=== PATIENT | female | born 1955 | race Two or more races ===

== ENCOUNTER 2016-07-15 19:35 | Inpatient (IN) | payer BC ==
[2016-07-15] MEDS ORDERED: ONDANSETRON 4 MG/2 ML VIAL IVP STA (20:41)
[2016-07-15] MEDS ORDERED: SODIUM CHLORIDE 0.9% 1,000 ML IV STA ×2 (20:41)
[2016-07-15] MEDS ORDERED: FAMOTIDINE 20 MG/2 ML VIAL IV STA (20:42)
[2016-07-15] MEDS ORDERED: DICYCLOMINE 10 MG/ML 2 ML AMP IM STA (20:42)
--- NOTE | 2016-07-15 20:44 | ED ---
General Adult HPI - General Chief complaint: Nausea/Vomiting/Diarrhea Stated complaint: vomitting Time Seen by Provider: 07/15/16 20:30 Source: patient, family, RN notes reviewed Mode of arrival: wheelchair Limitations: no limitations - History of Present Illness Initial comments: Patient is a pleasant 1-year-old female presenting to the emergency department complaining of nausea vomiting diarrhea. Symptoms have been present almost 3 weeks. Patient vomits 1-2 times daily. Decreased oral intake. Patient is losing weight. Patient feels generally weak and fatigued. Symptoms worsen with exertion. Patient is also having diarrhea approximately once daily. - Related Data Allergies Allergy/AdvReac Type Severity Reaction Status Date / Time levofloxacin [From Levaquin] AdvReac Intermediate Unknown Verified 07/15/16 21: 05 Review of Systems ROS Statement: Those systems with pertinent positive or pertinent negative responses have been documented in the HPI. ROS Other: All systems not noted in ROS Statement are negative. Constitutional: Denies: fever Eyes: Denies: eye pain ENT: Denies: ear pain Respiratory: Denies: cough, dyspnea Cardiovascular: Denies: chest pain Endocrine: Reports: fatigue Gastrointestinal: Reports: abdominal pain, nausea, vomiting, diarrhea Genitourinary: Denies: dysuria Musculoskeletal: Denies: back pain Skin: Denies: rash Neurological: Reports: weakness (Generalized) Past Medical History Past Medical History: COPD, Diabetes Mellitus, Hyperlipidemia, Hypertension Additional Past Medical History / Comment(s): MYASTHENIA GRAVIS History of Any Multi-Drug Resistant Organisms: None Reported Additional Past Surgical History / Comment(s): THYMUS Past Psychological History: Depression Smoking Status: Never smoker Past Alcohol Use History: None Reported Past Drug Use History: None Reported General Exam Limitations: no limitations General appearance: alert, in no apparent distress Head exam: Present: atraumatic, normocephalic Eye exam: Present: normal appearance, PERRL ENT exam: Present: normal oropharynx Neck exam: Present: normal inspection Respiratory exam: Present: normal lung sounds bilaterally Cardiovascular Exam: Present: regular rate, normal rhythm GI/Abdominal exam: Present: soft, normal bowel sounds. Absent: distended, tenderness Extremities exam: Present: normal inspection Neurological exam: Present: alert Psychiatric exam: Present: normal affect, normal mood Skin exam: Absent: rash Course Vital Signs 07/15/16 07/15/16 07/15/16 20:09 20:25 21:10 Temperature 98.3 F Pulse Rate 98 80 85 Respiratory 20 14 14 Rate Blood Pressure 82/52 99/56 98/53 O2 Sat by Pulse 100 99 96 Oximetry EKG Findings - EKG Comments: EKG Findings:: Normal sinus rhythm at 89. VT 138. QRS 82. QT 396. QTc 481. Normal axis. Normal QRS. Normal ST-T. Medical Decision Making - Medical Decision Making Patient reevaluated and updated. Patient provided IV potassium and oral potassium replacement. Patient provided fluid bolus. Patient has acute renal failure and hypokalemia. Patient will need to be admitted. Dr. Garcia has been paged for Dr. Stokes. Patient and family are updated on results and plan. - Lab Data Result diagrams: 07/15/16 20:30 07/15/16 20:51 Lab Results 07/15/16 07/15/16 Range/Units 20:30 20:51 WBC 10.0 (3.8-10.6) k/uL RBC 5.62 H (3.80-5.40) m/uL Hgb 12.9 (11.4-16.0) gm/dL Hct 41.8 (34.0-46.0) % MCV 74.4 L (80.0-100.0) fL MCH 23.0 L (25.0-35.0) pg MCHC 30.9 L (31.0-37.0) g/dL RDW 15.3 (11.5-15.5) % Plt Count 173 (150-450) k/uL Neutrophils % 88 % Lymphocytes % 5 % Monocytes % 4 % Eosinophils % 1 % Basophils % 2 % Neutrophils # 8.8 H (1.3-7.7) k/uL Lymphocytes # 0.5 L (1.0-4.8) k/uL Monocytes # 0.4 (0-1.0) k/uL Eosinophils # 0.1 (0-0.7) k/uL Basophils # 0.2 (0-0.2) k/uL Hypochromasia Slight Microcytosis Slight Sodium 136 L (137-145) mmol/L Potassium 2.5 L* (3.5-5.1) mmol/L Chloride 94 L (98-107) mmol/L Carbon Dioxide 26 (22-30) mmol/L Anion Gap 16 mmol/L BUN 42 H (7-17) mg/dL Creatinine 4.40 H (0.52-1.04) mg/dL Est GFR (MDRD) Af Amer 12 (>60 ml/min/1.73 sqM) Est GFR (MDRD) Non-Af 10 (>60 ml/min/1.73 sqM) Glucose 182 H (74-99) mg/dL Calcium 10.7 H (8.4-10.2) mg/dL Total Bilirubin 0.8 (0.2-1.3) mg/dL AST 43 H (14-36) U/L ALT 39 (9-52) U/L Alkaline Phosphatase 61 (38-126) U/L Total Protein 6.8 (6.3-8.2) g/dL Albumin 4.2 (3.5-5.0) g/dL Amylase 109 (30-110) U/L Lipase 223 (23-300) U/L - Radiology Data Radiology results: image reviewed (Abdominal x-ray shows no acute process) Disposition Clinical Impression: Acute renal failure (ARF), Hypokalemia Disposition: ADMITTED IP TO THIS [facility] Condition: Serious
[2016-07-15 20:58] LABS: Basophils # (A) 0.2 k/uL (0-0.2); Basophils % (A) 2 %; CH 23.4; CHCM 31.8; Eosinophils # (A) 0.1 k/uL (0-0.7); Eosinophils % (A) 1 %; HCT 41.8 % (34.0-46.0); HDW 3.16; HGB 12.9 gm/dL (11.4-16.0); Hypochromasia Slight; Luc # (Auto) 0.06; Luc % (Auto) 1; Lymphocytes # (A) 0.5 k/uL (1.0-4.8); Lymphocytes % (A) 5 %; MCHC 30.9 g/dL (31.0-37.0); MCV 74.4 fL (80.0-100.0); Microcytosis Slight; Monocytes # (A) 0.4 k/uL (0-1.0); Monocytes % (A) 4 %; Neutrophils # (A) 8.8 k/uL (1.3-7.7); Neutrophils % (A) 88 %; RBC 5.62 m/uL (3.80-5.40); RDW 15.3 % (11.5-15.5); WBC (Perox) 9.87
[2016-07-15 21:18] LABS: Calcium 10.7 mg/dL (8.4-10.2); Total Bilirubin 0.8 mg/dL (0.2-1.3); Total Protein 6.8 g/dL (6.3-8.2)
--- NOTE | 2016-07-15 21:29 | XR ---
EXAMINATION TYPE: XR KUB DATE OF EXAM: 07/15/2016 9:13 PM CLINICAL HISTORY: Left-sided abdominal pain with nausea and vomiting TECHNIQUE: 2 upright KUB images of the abdomen are obtained COMPARISON: None. FINDINGS: Some paucity of bowel gas is present. Visualized bowel appears not suspiciously distended i n the lower abdomen and pelvis. No pneumoperitoneum is identified. Some left pelvic vascular calcific ation is seen. Metallic densities likely reflects surgical change at pubic symphysis bilaterally. Maira g bases are grossly clear with sternal wires partially imaged. IMPRESSION: Overall nonspecific favor nonobstructive bowel gas pattern.
[2016-07-15 21:37] LABS: Potassium 2.5 mmol/L (3.5-5.1)
[2016-07-15] MEDS ORDERED: POTASSIUM CHLORIDE ER 20 MEQ TAB.ER PO STA (21:37)
[2016-07-15] MEDS ORDERED: ONDANSETRON 4 MG/2 ML VIAL IVP PRN (21:57)
[2016-07-15] MEDS ORDERED: NALOXONE 0.4 MG/ML 1 ML VIAL IV PRN (21:57)
[2016-07-15] MEDS: PANTOPRAZOLE 40 MG/10 ML VIAL IV SCH (22:22)
[2016-07-15] MEDS: POTASSIUM CHLORIDE 10 MEQ, LIDOCAINE 2% INJ 10 MG in SODIUM CHLORIDE 0.9% 100 ML IVPB SCH (22:22)
[2016-07-15] MEDS: 0.9% NACL WITH KCL 20 MEQ/L 1,000 ML IV SCH (22:22)
[2016-07-15 22:33] LABS: Appearance,Urine Cloudy (Clear); Bacteria,Urine Occasional /hpf; Bilirubin,Urine Negative (Negative); Glucose,Urine (UA) 4+ (Negative); Ketones,Urine Trace (Negative); Leukocyte Esterase,Urine Negative (Negative); Mucus,Urine Rare /hpf; Nitrite,Urine Negative (Negative); PH, Urine 5.5 (5.0-8.0); Particle Count 8714; Protein,Urine 1+ (Negative); RBC,Urine 1 /hpf (0-5); Specific Gravity,Urine 1.006 (1.001-1.035); Squamous Epithelial Cell,Urine 7 /hpf (0-4); UA Billing (MACRO vs. MICRO) MICRO; Urobilinogen,Urine <2.0 mg/dL (<2.0); WBC,Urine 5 /hpf (0-5)
[2016-07-16] MEDS: POTASSIUM CHLORIDE 10 MEQ, LIDOCAINE 2% INJ 10 MG in SODIUM CHLORIDE 0.9% 100 ML IVPB SCH ×3 (00:23→23:55)
[2016-07-16 00:34] VITALS: BMI 28.7
[2016-07-16] MEDS ORDERED: ERGOCALCIFEROL 50,000 UNIT CAP PO SCH (09:00)
[2016-07-16] MEDS ORDERED: VENLAFAXINE HCL ER 75 MG CAP PO SCH (09:00)
[2016-07-16] MEDS ORDERED: OMEPRAZOLE 10 MG PO SCH (09:00)
[2016-07-16] MEDS: 0.9% NACL WITH KCL 20 MEQ/L 1,000 ML IV SCH ×3 (09:12→23:54)
[2016-07-16 09:22] LABS: Basophils % (A) 0 %; CH 23.6; CHCM 31.4; Eosinophils % (A) 0 %; HCT 34.5 % (34.0-46.0); HDW 3.12; HGB 10.6 gm/dL (11.4-16.0); Hypochromasia Moderate; Luc # (Auto) 0.09; Luc % (Auto) 1; Lymphocytes # (A) 0.9 k/uL (1.0-4.8); Lymphocytes % (A) 12 %; MCH 23.3 pg (25.0-35.0); MCHC 30.6 g/dL (31.0-37.0); Microcytosis Slight; Monocytes # (A) 0.5 k/uL (0-1.0); Monocytes % (A) 6 %; Neutrophils # (A) 5.9 k/uL (1.3-7.7); Neutrophils % (A) 80 %; RBC 4.54 m/uL (3.80-5.40); RDW 15.6 % (11.5-15.5); WBC 7.4 k/uL (3.8-10.6)
[2016-07-16 09:54] LABS: Calcium 9.2 mg/dL (8.4-10.2); Magnesium 1.9 mg/dL (1.6-2.3); Phosphorous 2.2 mg/dL (2.5-4.5); Potassium 3.2 mmol/L (3.5-5.1)
[2016-07-16] MEDS: FERROUS SULFATE 325 MG TAB PO SCH (09:54)
[2016-07-16] MEDS: PYRIDOSTIGMINE 60 MG TAB PO SCH ×4 (09:55→21:46)
[2016-07-16] MEDS ORDERED: Potassium Replacement Protocol 1 EACH MISC MISCELLANE PRN ×2 (10:34→17:33)
[2016-07-16] MEDS ORDERED: diphenhydrAMINE 25 MG CAP PO PRN (10:40)
[2016-07-16] MEDS ORDERED: ALBUTEROL NEBULIZED 2.5 MG/3 ML INHALATION PRN (10:40)
[2016-07-16] MEDS ORDERED: FLUTICASONE 50MCG/SPRAY NASAL 16GM EA NOSTRIL PRN (10:40)
[2016-07-16] MEDS ORDERED: HYDROcodone/APAP 5-325MG 1 EACH TAB PO PRN (10:40)
--- NOTE | 2016-07-16 10:54 | P.HPIM ---
History of Present Illness H&P Date: 07/16/16 Chief Complaint: Nausea, vomiting and diarrhea 1 week This is a 61-year-old female, patient of [facility]. She has a known past medical history of myasthenia gravis, hypertension, hyperlipidemia, diabetes mellitus and COPD. She presents to the emergency room with complaints of vomiting and diarrhea 1 week. Patient reports that she's having about 2 episodes of vomiting daily as well as about 3 episodes of diarrhea daily. There is been no blood or coffee-ground emesis reported in the vomiting. And her stools have been liquidy brown no blood or dark black stools. Patient reports no traveling out of the country. Denies any fever chills or sweats. Denies any chest pain or shortness of breath. Patient denies any recent antibiotic use. But due to the continuing vomiting and diarrhea and difficulty making keeping her pills and food down she presented to the emergency room for further evaluation and treatment. She was found to be in acute renal failure with a creatinine of 4.40 and with hyperkalemia with a potassium of 2.5. She's been started on normal saline with potassium at 120 cc an hour. Nephrology has been consulted. She's had no prior history of renal failure. Her Lasix, Zestoretic and metformin have all been placed on hold. Review of Systems Please refer to HPI otherwise unremarkable Past Medical History Past Medical History: COPD, Diabetes Mellitus, Hyperlipidemia, Hypertension Additional Past Medical History / Comment(s): MYASTHENIA GRAVIS History of Any Multi-Drug Resistant Organisms: None Reported Past Surgical History: Appendectomy, Hysterectomy, Tubal Ligation Additional Past Surgical History / Comment(s): bladder sx x 2, THYMUS, patient has had previous EGD and colonoscopy less than 10 years ago. Reports results were normal. Past Anesthesia/Blood Transfusion Reactions: No Reported Reaction Past Psychological History: Depression Smoking Status: Former smoker Past Alcohol Use History: None Reported Past Drug Use History: None Reported Medications and Allergies Home Medications Medication Instructions Recorded Confirmed Type Albuterol Nebulized [Ventolin 2.5 mg INHALATION RT-QID PRN 07/16/16 07/16/16 History Nebulized] Ergocalciferol (Vitamin D2) 50,000 unit PO Q7D 07/16/16 07/16/16 History [Vitamin D2] Ferrous Sulfate [Feosol] 325 mg PO DAILY 07/16/16 07/16/16 History Fluticasone Nasal [place] [Flonase 2 spr EA NOSTRIL DAILY PRN 07/16/16 07/16/16 History Nasal [place]] Furosemide [Lasix] 20 mg PO DAILY 07/16/16 07/16/16 History HYDROcodone/APAP 5-325MG [[place] 1 - 2 tab PO QID PRN 07/16/16 07/16/16 History 5-325] Ipratropium-Albuterol Nebulize 3 ml INHALATION RT-QID PRN 07/16/16 07/16/16 History [Duoneb 0.5 mg-3 mg/3 ml Soln] Lisinopril-Hctz 10-12.5 mg 1 tab PO DAILY 07/16/16 07/16/16 History [Zestoretic 10-12.5] Loratadine [Claritin] 10 mg PO DAILY 07/16/16 07/16/16 History Omeprazole [PriLOSEC] 20 mg PO DAILY 07/16/16 07/16/16 History Potassium Chloride [Klor-Con 10] 10 meq PO DAILY 07/16/16 07/16/16 History Pyridostigmine [place] [Mestinon] 60 mg PO QID 07/16/16 07/16/16 History Topiramate [Topamax] 100 mg PO HS 07/16/16 07/16/16 History Venlafaxine HCl ER [Effexor Xr] 75 mg PO BID 07/16/16 07/16/16 History diphenhydrAMINE HCL [Benadryl] 25 mg PO DAILY PRN 07/16/16 07/16/16 History metFORMIN HCL ER [Glucophage Xr] 500 mg PO BID 07/16/16 07/16/16 History predniSONE 10 mg PO BID 07/16/16 07/16/16 History Allergies Allergy/AdvReac Type Severity Reaction Status Date / Time levofloxacin [From Levaquin] AdvReac Intermediate Unknown Verified 07/16/16 10: 10 Physical Exam Vitals: Vital Signs Temp Pulse Pulse Resp BP BP Pulse Ox 07/16/16 07:00 97.6 F 76 16 106/63 100 07/16/16 03:57 98.2 F 75 20 99/61 96 07/15/16 22:24 71 14 99/60 99 Intake and Output 07/15/16 07/16/16 07/16/16 22:59 06:59 14:59 Intake Total 100 Balance 100 Intake: Oral 100 Other: Voiding Method Toilet # Voids 1 Weight 75.92 kg Head normocephalic Neck supple Lungs clear to auscultation bilaterally no wheezing or crackles Heart regular rate and rhythm S1-S2, no rub or gallop Abdomen is soft nontender nondistended positive bowel sounds no hepatosplenomegaly Extremities no edema Neuro alert and orientated to 3 Results CBC & Chem 7: 07/16/16 08:55 07/16/16 08:55 Labs: Abnormal Lab Results - Last 24 Hours (Table) 07/16/16 07/16/16 Range/Units 08:55 08:55 Hgb 10.6 L (11.4-16.0) gm/dL MCV 76.0 L (80.0-100.0) fL MCH 23.3 L (25.0-35.0) pg MCHC 30.6 L (31.0-37.0) g/dL RDW 15.6 H (11.5-15.5) % Plt Count 136 L (150-450) k/uL Lymphocytes # 0.9 L (1.0-4.8) k/uL Potassium 3.2 L (3.5-5.1) mmol/L BUN 33 H (7-17) mg/dL Creatinine 2.75 H (0.52-1.04) mg/dL Glucose 111 H (74-99) mg/dL Phosphorus 2.2 L (2.5-4.5) mg/dL Thrombosis Risk Factor Assmnt - Choose All That Apply Each Factor Represents 1 point: Abnormal pulmonary function (COPD), Obesity ( BMI >25) Each Risk Factor Represents 2 Points: Age 61-74 years Other congenital or acquired thrombophilia - If yes, enter type in comment: No Thrombosis Risk Factor Assessment Total Risk Factor Score: 4 Thrombosis Risk Factor Assessment Level: Moderate Risk Assessment and Plan Plan: 1. Acute kidney injury: Creatinine 4.40 on admission. Likely secondary to vomiting and diarrhea. Patient also on diuretics at home. Lasix and Zestoretic have been discontinued. Metformin discontinued at this time. Nephrology has been Consulted. Patient is receiving sodium chloride with potassium at 120 mL an hour. Continue to monitor kidney functions 2. Nausea, vomiting and diarrhea: Exact etiology unclear. Possibly viral gastroenteritis. We'll check stool studies. Continue Protonix and Zofran 3. Hypokalemia: Secondary to acute kidney injury as well as the vomiting and diarrhea. Continue with replacement. Repeat labs in a.m. 4. Essential hypertension: Patient has been hypotensive. Blood pressure medications on hold. Last blood pressure is 106/63. Continue with fluids. 5. History of myasthenia gravis 6. Diabetes mellitus type 2: Hold metformin. Plus patient on sliding scale coverage 7. History of COPD: No evidence of exacerbation. Resume her inhalers GI prophylaxis Protonix and DVT prophylaxis subcu heparin Time with Patient: Greater than 30 (Greater than 50% of the total time spent in counseling and coordination of care.I performed an examination of the patient and discussed their management with the physician Virology Teacher. I have reviewed the Physician Virology Teacher's notes and agree with the documented findings and plan of care)
[2016-07-16] MEDS: PANTOPRAZOLE 40 MG/10 ML VIAL IV SCH (11:14)
[2016-07-16] MEDS: POTASSIUM CHLORIDE ER 20 MEQ TAB.ER PO SCH ×4 (11:15→19:03)
[2016-07-16 11:34] LABS: Hemoglobin A1C 7.2 % (4.2-6.1)
[2016-07-16 11:58] LABS: Glucose,Whole Blood 99 mg/dL (75-99)
[2016-07-16] MEDS: IPRATROPIUM-ALBUTEROL 3 ML NEB INHALATION PRN (12:10)
[2016-07-16] MEDS: INSULIN LISPRO (humaLOG) 300 UNIT/3 ML VIAL SQ SCH ×3 (12:57→21:46)
--- NOTE | 2016-07-16 15:41 | CONS ---
DATE OF. CONSULTATION: REASON FOR CONSULTATION: Renal failure. HISTORY OF PRESENT ILLNESS: Patient is a 61-year-old white female who was admitted to the hospital with complaints of abdominal pain, not feeling well. She had some nausea and decreased oral intake. Patient was noted to have a serum creatinine of 4.4 mg/dL. She denies any prior history of kidney diseases. No previous labs available for comparison. Patient has been maintained on IV fluids. Her creatinine now is down to 2.75 mg/dL. Patient denies the use of any nonsteroidal anti-inflammatory agents. Her potassium was also low at about 2.5 meq per L at the time of admission. Patient had been on Lasix at home which is currently on hold. PAST MEDICAL HISTORY: Myasthenia gravis, type 2 diabetes, COPD, hyperlipidemia, hypertension. PAST SURGICAL HISTORY: Bladder surgery, surgery on the thymus gland, Appendectomy, hysterectomy, tubal ligation. SOCIAL HISTORY: The patient is an ex-smoker. No history of drug abuse or alcohol abuse. Medications at home included: 1. Lisinopril and hydrochlorothiazide. 2. Vicodin. 3. Lasix. 4. Iron. 5. Vitamin D. 6. Claritin. 7. Prilosec. 8. Potassium. 9. Topamax. 10. Effexor. 11. Glucophage. 12. Benadryl. Allergies include Levaquin. On examination, the patient is comfortable, awake, alert, oriented x3, not in any acute distress. Blood pressure 99/61 heart rate 75 per minute. She is afebrile. Examination of the heart S1 and S2. Examination of the lungs: Bilateral breath sounds are heard. ABDOMEN: Soft nontender. Minimal tenderness noted in the midabdomen. Examination of lower extremities shows no significant edema. PRE ASSEMBLY WIRER exam is grossly intact. Patient is moving all 4 extremities. Labs show sodium 140, potassium 3.2, BUN 33, serum creatinine 2.75. Hemoglobin 10.6 g/dL. UA shows 1+ protein, 4+ glucose, small blood, trace ketones, WBC is 5. ASSESSMENT: 1. Acute kidney injury, acute tubular necrosis, currently nonoliguric and improving. Etiology is hypovolemia and hypoperfusion as well. Blood pressure has been low. Patient was maintained on CARLOS ALBERTO inhibitors prior to admission. Diuretics are on hold and she is appropriately maintained on IV fluids, which I will continue for now. We will check an ultrasound of the kidneys as well. 2. Hypokalemia associated with vomiting as well as diuretics, currently improved, post replacement. 3. Type 2 diabetes. 4. Myasthenia gravis. 5. Rule out chronic kidney disease. 6. Hypercalcemia associated with acute kidney injury intervascular volume depletion, currently improved. Calcium is down to 9.2 mg/dL PLAN: Check ultrasound of the kidneys. Continue IV fluids. Repeat labs in the a.m. continue to hold off on diuretics for now and continue to replace potassium. Thank you for this consultation. We will continue to follow the patient with you during her hospitalization.
[2016-07-16 16:58] LABS: Glucose,Whole Blood 103 mg/dL (75-99)
[2016-07-16 20:46] LABS: Glucose,Whole Blood 104 mg/dL (75-99)
[2016-07-16] MEDS: predniSONE 10 MG TAB PO SCH (21:46)
[2016-07-16] MEDS: HEPARIN SODIUM,PORCINE 5,000 UNIT/ML 1 ML VIAL SQ SCH (21:46)
[2016-07-16] MEDS: TOPIRAMATE 100 MG TAB PO SCH (21:46)
[2016-07-17] MEDS: POTASSIUM CHLORIDE 10 MEQ, LIDOCAINE 2% INJ 10 MG in SODIUM CHLORIDE 0.9% 100 ML IVPB SCH (00:42)
[2016-07-17] MEDS: PANTOPRAZOLE 40 MG/10 ML VIAL IV SCH (07:51)
[2016-07-17] MEDS: HEPARIN SODIUM,PORCINE 5,000 UNIT/ML 1 ML VIAL SQ SCH ×2 (07:51→21:21)
[2016-07-17] MEDS: FERROUS SULFATE 325 MG TAB PO SCH (07:52)
[2016-07-17] MEDS: LORATADINE 10 MG TAB PO SCH (07:52)
[2016-07-17] MEDS: PYRIDOSTIGMINE 60 MG TAB PO SCH ×4 (07:52→21:21)
[2016-07-17] MEDS: POTASSIUM CHLORIDE ER 10 MEQ TAB.ER.PRT PO SCH (07:52)
[2016-07-17] MEDS: predniSONE 10 MG TAB PO SCH ×2 (07:52→21:21)
[2016-07-17] MEDS: VENLAFAXINE HCL ER 75 MG CAP PO SCH ×2 (07:52→21:21)
[2016-07-17 07:53] LABS: Glucose,Whole Blood 98 mg/dL (75-99)
[2016-07-17] MEDS: INSULIN LISPRO (humaLOG) 300 UNIT/3 ML VIAL SQ SCH ×4 (07:53→21:22)
[2016-07-17 09:02] LABS: Basophils % (A) 0 %; CH 22.6; CHCM 29.4; Eosinophils % (A) 0 %; HCT 35.7 % (34.0-46.0); HDW 3.05; HGB 10.4 gm/dL (11.4-16.0); Hypochromasia Marked; Luc % (Auto) 2; Lymphocytes # (A) 0.7 k/uL (1.0-4.8); Lymphocytes % (A) 11 %; MCH 22.7 pg (25.0-35.0); MCHC 29.2 g/dL (31.0-37.0); MCV 77.8 fL (80.0-100.0); Mean Platelet Volume 6.3; Monocytes # (A) 0.3 k/uL (0-1.0); Monocytes % (A) 4 %; Neutrophils # (A) 5.5 k/uL (1.3-7.7); Neutrophils % (A) 83 %; RBC 4.59 m/uL (3.80-5.40); RDW 15.7 % (11.5-15.5); WBC 6.5 k/uL (3.8-10.6); WBC (Perox) 7.24
[2016-07-17 09:14] LABS: Calcium 9.3 mg/dL (8.4-10.2); Magnesium 1.7 mg/dL (1.6-2.3); Phosphorous 2.2 mg/dL (2.5-4.5); Potassium 4.6 mmol/L (3.5-5.1); Total Bilirubin 0.5 mg/dL (0.2-1.3)
[2016-07-17] MEDS: 0.9% NACL WITH KCL 20 MEQ/L 1,000 ML IV SCH ×3 (12:04→23:01)
[2016-07-17 12:23] LABS: Glucose,Whole Blood 111 mg/dL (75-99)
--- NOTE | 2016-07-17 16:25 | P.PN ---
Subjective Principal diagnosis: Acute renal failure, acute gastroenteritis Patient is a 61-year-old female who presented to [facility] emergency room with nausea vomiting and diarrhea patient had evidence of severe dehydration with acute renal failure likely due to prerenal azotemia creatinine was up to 4.4 on presentation she was admitted to medical floor she was started on IV fluid. Creatinine is down to 1.41 today Patient was started on liquid diet she is tolerating well without any nausea or vomiting at this time Objective - Vital Signs Vital signs: Vital Signs Temp 97.8 F 07/17/16 07:00 Pulse 72 07/17/16 07:00 Resp 20 07/17/16 07:00 BP 90/50 07/17/16 07:00 Pulse Ox 100 07/17/16 07:00 Intake & Output 07/16/16 07/17/16 07/17/16 18:59 06:59 18:59 Intake Total 1000 850 Balance 1000 850 Intake: Oral 1000 850 Other: Voiding Method Toilet Toilet # Voids 1 2 # Bowel Movements 1 - Exam In general patient is alert and oriented 3 in no apparent distress HEENT head normocephalic and atraumatic Neck is supple no JVD no goiter no lymphadenopathy Chest is clear to auscultation no wheezing Cardiac exam reveals regular heart sounds no gallops no murmurs Abdomen is soft nontender no organomegaly Extremity exam reveals no edema no cyanosis or clubbing - Labs CBC & Chem 7: 07/17/16 08:20 07/17/16 08:20 Labs: Abnormal Lab Results - Last 24 Hours (Table) 07/16/16 07/16/16 07/16/16 Range/Units 16:52 16:53 20:25 Hgb (11.4-16.0) gm/dL MCV (80.0-100.0) fL MCH (25.0-35.0) pg MCHC (31.0-37.0) g/dL RDW (11.5-15.5) % Plt Count (150-450) k/uL Lymphocytes # (1.0-4.8) k/uL Potassium 3.1 L (3.5-5.1) mmol/L Chloride (98-107) mmol/L BUN (7-17) mg/dL Creatinine (0.52-1.04) mg/dL Glucose (74-99) mg/dL POC Glucose (mg/dL) 103 H 104 H (75-99) mg/dL Phosphorus (2.5-4.5) mg/dL Total Protein (6.3-8.2) g/dL 07/16/16 07/17/16 07/17/16 Range/Units 20:54 08:20 08:20 Hgb 10.4 L (11.4-16.0) gm/dL MCV 77.8 L (80.0-100.0) fL MCH 22.7 L (25.0-35.0) pg MCHC 29.2 L (31.0-37.0) g/dL RDW 15.7 H (11.5-15.5) % Plt Count 136 L (150-450) k/uL Lymphocytes # 0.7 L (1.0-4.8) k/uL Potassium 3.4 L (3.5-5.1) mmol/L Chloride 111 H (98-107) mmol/L BUN 21 H (7-17) mg/dL Creatinine 1.42 H (0.52-1.04) mg/dL Glucose 109 H (74-99) mg/dL POC Glucose (mg/dL) (75-99) mg/dL Phosphorus 2.2 L (2.5-4.5) mg/dL Total Protein 6.0 L (6.3-8.2) g/dL 07/17/16 Range/Units 11:49 Hgb (11.4-16.0) gm/dL MCV (80.0-100.0) fL MCH (25.0-35.0) pg MCHC (31.0-37.0) g/dL RDW (11.5-15.5) % Plt Count (150-450) k/uL Lymphocytes # (1.0-4.8) k/uL Potassium (3.5-5.1) mmol/L Chloride (98-107) mmol/L BUN (7-17) mg/dL Creatinine (0.52-1.04) mg/dL Glucose (74-99) mg/dL POC Glucose (mg/dL) 111 H (75-99) mg/dL Phosphorus (2.5-4.5) mg/dL Total Protein (6.3-8.2) g/dL Microbiology - Last 24 Hours (Table) 07/16/16 13:14 Stool for WBCs - Final Stool 07/16/16 13:14 Stool Culture - Preliminary Stool Assessment and Plan Plan: 1. Acute kidney injury: Creatinine 4.40 on admission. Likely secondary to vomiting and diarrhea. Patient also on diuretics at home. Patient is receiving sodium chloride with potassium at 120 mL an hour. Creatinine is down to 1.41 today Continue to monitor kidney functions 2. Nausea, vomiting and diarrhea: Exact etiology unclear. Possibly viral gastroenteritis. We'll check stool studies. Continue Protonix and Zofran, symptoms improved 3. Hypokalemia: Secondary to acute kidney injury as well as the vomiting and diarrhea. Continue with replacement. Repeat labs in a.m. 4. Essential hypertension: Patient has been hypotensive. Blood pressure medications on hold. Last blood pressure is 106/63. Continue with fluids. 5. History of myasthenia gravis 6. Diabetes mellitus type 2: Hold metformin. Plus patient on sliding scale coverage 7. History of COPD: No evidence of exacerbation. Resume her inhalers
[2016-07-17 16:52] LABS: Glucose,Whole Blood 128 mg/dL (75-99)
[2016-07-17 20:52] LABS: Glucose,Whole Blood 105 mg/dL (75-99)
[2016-07-17] MEDS: TOPIRAMATE 100 MG TAB PO SCH (21:21)
[2016-07-18 08:01] LABS: Glucose,Whole Blood 99 mg/dL (75-99)
[2016-07-18] MEDS: INSULIN LISPRO (humaLOG) 300 UNIT/3 ML VIAL SQ SCH ×4 (08:03→21:23)
[2016-07-18] MEDS: 0.9% NACL WITH KCL 20 MEQ/L 1,000 ML IV SCH ×2 (08:06→16:25)
[2016-07-18] MEDS: HEPARIN SODIUM,PORCINE 5,000 UNIT/ML 1 ML VIAL SQ SCH ×2 (08:08→21:22)
[2016-07-18] MEDS: FERROUS SULFATE 325 MG TAB PO SCH (08:08)
[2016-07-18] MEDS: PYRIDOSTIGMINE 60 MG TAB PO SCH ×4 (08:09→21:23)
[2016-07-18] MEDS: LORATADINE 10 MG TAB PO SCH (08:09)
[2016-07-18] MEDS: POTASSIUM CHLORIDE ER 10 MEQ TAB.ER.PRT PO SCH (08:09)
[2016-07-18] MEDS: predniSONE 10 MG TAB PO SCH ×2 (08:09→21:23)
[2016-07-18] MEDS: PANTOPRAZOLE 40 MG/10 ML VIAL IV SCH (08:09)
[2016-07-18] MEDS: VENLAFAXINE HCL ER 75 MG CAP PO SCH ×2 (08:09→21:23)
[2016-07-18 08:56] LABS: Anisocytosis Slight; Basophils % (A) 0 %; CH 22.7; CHCM 29.7; Eosinophils % (A) 0 %; HCT 34.8 % (34.0-46.0); HDW 3.16; HGB 10.3 gm/dL (11.4-16.0); Hypochromasia Marked; Luc # (Auto) 0.06; Luc % (Auto) 1; Lymphocytes # (A) 0.9 k/uL (1.0-4.8); Lymphocytes % (A) 15 %; MCH 22.8 pg (25.0-35.0); MCHC 29.6 g/dL (31.0-37.0); MCV 77.2 fL (80.0-100.0); Mean Platelet Volume 6.3; Microcytosis Slight; Monocytes # (A) 0.2 k/uL (0-1.0); Monocytes % (A) 4 %; Neutrophils # (A) 4.7 k/uL (1.3-7.7); Neutrophils % (A) 80 %; RBC 4.51 m/uL (3.80-5.40); RDW 16.3 % (11.5-15.5); WBC 5.9 k/uL (3.8-10.6); WBC (Perox) 5.96
[2016-07-18 09:23] LABS: Calcium 8.9 mg/dL (8.4-10.2); Magnesium 1.6 mg/dL (1.6-2.3); Potassium 4.7 mmol/L (3.5-5.1); Total Bilirubin 0.4 mg/dL (0.2-1.3); Total Protein 5.5 g/dL (6.3-8.2)
[2016-07-18 12:26] LABS: Glucose,Whole Blood 111 mg/dL (75-99)
--- NOTE | 2016-07-18 13:01 | P.PN ---
Subjective Principal diagnosis: Acute renal failure, acute gastroenteritis Patient is a 61-year-old female who presented to [facility] emergency room with nausea vomiting and diarrhea patient had evidence of severe dehydration with acute renal failure likely due to prerenal azotemia creatinine was up to 4.4 on presentation she was admitted to medical floor she was started on IV fluid. Creatinine is down to 1.21 today Patient was started on liquid diet she is tolerating well without any nausea or vomiting at this time Objective - Vital Signs Vital signs: Vital Signs Temp 97.3 F L 07/18/16 07:00 Pulse 77 07/18/16 11:40 Resp 20 07/18/16 11:40 BP 94/53 07/18/16 07:00 Pulse Ox 99 07/18/16 07:00 Intake & Output 07/17/16 07/18/16 07/18/16 18:59 06:59 18:59 Intake Total 480 Balance 480 Intake: Oral 480 Other: Voiding Method Toilet Toilet Toilet # Voids 2 1 - Exam In general patient is alert and oriented 3 in no apparent distress HEENT head normocephalic and atraumatic Neck is supple no JVD no goiter no lymphadenopathy Chest is clear to auscultation no wheezing Cardiac exam reveals regular heart sounds no gallops no murmurs Abdomen is soft nontender no organomegaly Extremity exam reveals no edema no cyanosis or clubbing - Labs CBC & Chem 7: 07/18/16 08:29 07/18/16 08:37 Labs: Abnormal Lab Results - Last 24 Hours (Table) 07/17/16 07/17/16 07/18/16 Range/Units 16:47 20:50 08:29 Hgb 10.3 L (11.4-16.0) gm/dL MCV 77.2 L (80.0-100.0) fL MCH 22.8 L (25.0-35.0) pg MCHC 29.6 L (31.0-37.0) g/dL RDW 16.3 H (11.5-15.5) % Plt Count 131 L (150-450) k/uL Lymphocytes # 0.9 L (1.0-4.8) k/uL Chloride (98-107) mmol/L Creatinine (0.52-1.04) mg/dL Glucose (74-99) mg/dL POC Glucose (mg/dL) 128 H 105 H (75-99) mg/dL Total Protein (6.3-8.2) g/dL Albumin (3.5-5.0) g/dL 07/18/16 07/18/16 Range/Units 08:37 12:12 Hgb (11.4-16.0) gm/dL MCV (80.0-100.0) fL MCH (25.0-35.0) pg MCHC (31.0-37.0) g/dL RDW (11.5-15.5) % Plt Count (150-450) k/uL Lymphocytes # (1.0-4.8) k/uL Chloride 116 H (98-107) mmol/L Creatinine 1.21 H (0.52-1.04) mg/dL Glucose 113 H (74-99) mg/dL POC Glucose (mg/dL) 111 H (75-99) mg/dL Total Protein 5.5 L (6.3-8.2) g/dL Albumin 3.0 L (3.5-5.0) g/dL Assessment and Plan Plan: 1. Acute kidney injury: Creatinine 4.40 on admission. Likely secondary to vomiting and diarrhea. Patient also on diuretics at home. Patient is receiving sodium chloride with potassium at 120 mL an hour. Creatinine is down to 1.41 today Continue to monitor kidney functions 2. Nausea, vomiting and diarrhea: Exact etiology unclear. Possibly viral gastroenteritis. We'll check stool studies. Continue Protonix and Zofran, symptoms improved 3. Hypokalemia: Secondary to acute kidney injury as well as the vomiting and diarrhea. Continue with replacement. Repeat labs in a.m. 4. Essential hypertension: Patient has been hypotensive. Blood pressure medications on hold. Last blood pressure is 106/63. Continue with fluids. 5. History of myasthenia gravis 6. Diabetes mellitus type 2: Hold metformin. Plus patient on sliding scale coverage 7. History of COPD: No evidence of exacerbation. Resume her inhalers Patient improving gradually, continue current care possible discharge tomorrow
[2016-07-18] MEDS: IPRATROPIUM-ALBUTEROL 3 ML NEB INHALATION PRN (16:29)
[2016-07-18 17:28] LABS: Glucose,Whole Blood 115 mg/dL (75-99)
--- NOTE | 2016-07-18 18:48 | PN ---
Patient is seen for followup for acute kidney injury. Her renal failure was mainly prerenal. She has improved significantly with IV hydration. On examination, blood pressure is 100/65, heart rate 77 per minute. She is afebrile. HEART: S1 and S2. LUNGS: Bilateral breath sounds are heard. Abdomen is soft, nontender. Lower extremities show no significant edema. X R[employer] EQUIPMENT SERVICER is grossly intact. Labs show sodium 145, potassium 4.7, chloride 116, BUN 13, serum creatinine 1.21. Hemoglobin of 10.3 g/dL. ASSESSMENT: 1. Acute kidney injury, prerenal, currently significantly improved with creatinine down from 4.4 to 1.2 mg/dL. 2. Nausea, vomiting and diarrhea, currently resolved, most likely viral gastroenteritis. 3. Hypokalemia associated with the gastrointestinal fluid loss and decreased intake, currently improved. 4. History of myasthenia gravis. PLAN: Decrease IV fluids. Continue to encourage increased oral intake. May resume metformin from nephrology standpoint.
[2016-07-18] MEDS ORDERED: 0.9% NACL WITH KCL 20 MEQ/L 1,000 ML IV SCH (19:00)
[2016-07-18 21:00] LABS: Glucose,Whole Blood 147 mg/dL (75-99)
[2016-07-18] MEDS: TOPIRAMATE 100 MG TAB PO SCH (21:23)
[2016-07-19] MEDS: IPRATROPIUM-ALBUTEROL 3 ML NEB INHALATION PRN (07:25)
[2016-07-19] MEDS ORDERED: PANTOPRAZOLE 40 MG TABLET PO SCH (07:30)
[2016-07-19 07:40] LABS: Glucose,Whole Blood 99 mg/dL (75-99)
[2016-07-19 07:53] VITALS: BP 105/75; PULSE 84; RESP 20; TEMP 97.2
[2016-07-19] MEDS: INSULIN LISPRO (humaLOG) 300 UNIT/3 ML VIAL SQ SCH ×2 (07:55→13:18)
[2016-07-19 09:19] LABS: Anisocytosis Slight; Basophils % (A) 0 %; CH 22.5; CHCM 29.4; Eosinophils % (A) 0 %; HCT 32.4 % (34.0-46.0); HGB 9.6 gm/dL (11.4-16.0); Hypochromasia Marked; Luc # (Auto) 0.07; Luc % (Auto) 1; Lymphocytes % (A) 17 %; MCHC 29.7 g/dL (31.0-37.0); MCV 77.5 fL (80.0-100.0); Mean Platelet Volume 7.1; Microcytosis Slight; Monocytes # (A) 0.2 k/uL (0-1.0); Monocytes % (A) 4 %; Neutrophils # (A) 4.3 k/uL (1.3-7.7); Neutrophils % (A) 77 %; RBC 4.18 m/uL (3.80-5.40); RDW 16.8 % (11.5-15.5); WBC 5.6 k/uL (3.8-10.6); WBC (Perox) 6.07
[2016-07-19 09:30] LABS: Calcium 9.2 mg/dL (8.4-10.2); Magnesium 1.3 mg/dL (1.6-2.3); Potassium 4.2 mmol/L (3.5-5.1); Total Bilirubin 0.4 mg/dL (0.2-1.3); Total Protein 5.4 g/dL (6.3-8.2)
[2016-07-19] MEDS: POTASSIUM CHLORIDE ER 10 MEQ TAB.ER.PRT PO SCH (10:04)
[2016-07-19] MEDS: FERROUS SULFATE 325 MG TAB PO SCH (10:04)
[2016-07-19] MEDS: HEPARIN SODIUM,PORCINE 5,000 UNIT/ML 1 ML VIAL SQ SCH (10:04)
[2016-07-19] MEDS: VENLAFAXINE HCL ER 75 MG CAP PO SCH (10:04)
[2016-07-19] MEDS: PYRIDOSTIGMINE 60 MG TAB PO SCH ×2 (10:05→12:17)
[2016-07-19] MEDS: predniSONE 10 MG TAB PO SCH (10:05)
[2016-07-19] MEDS: LORATADINE 10 MG TAB PO SCH (10:05)
--- NOTE | 2016-07-19 11:07 | P.DS ---
Providers Date of admission: 07/15/16 21:57 Expected date of discharge: 07/19/16 Attending physician: Cristopher Batista Consults: Dr. Stone Primary care physician: Britany Stokes Hospital Course: Discharge diagnosis 1. Acute kidney injury: Creatinine 4.40 on admission. Likely prerenal secondary to vomiting and diarrhea. Patient also on diuretics at home. Kidney functions improved with IV fluids 2. Nausea, vomiting and diarrhea: Possibly viral gastroenteritis. Stool studies negative 3. Hypokalemia: Secondary to acute kidney injury as well as the vomiting and diarrhea. Improved 4. Essential hypertension: Blood pressures have shown improvement. At this time hold off on Lasix. We'll resume her Zestoretic 5. History of myasthenia gravis 6. Diabetes mellitus type 2: Metformin okay to resume 7. History of COPD: No evidence of exacerbation. 8. Hypomagnesemia. Magnesium 1.3. Patient receiving supplement prior to discharge. Hospital course Patient is a 61-year-old female who presented to [facility] emergency room with nausea vomiting and diarrhea patient had evidence of severe dehydration with acute renal failure likely due to prerenal azotemia creatinine was up to 4.4 on presentation she was admitted to medical floor she was started on IV fluid. Should symptoms did improve with IV fluids. Vomiting and diarrhea resolved. Creatinine at discharge is 1.12. She was followed by nephrology. They okayed for her to resume the metformin. Patient's blood pressures are still been on the lower side. Blood pressure at discharge is 105/ 75. At this time we'll continue holding the Lasix and resume her Zestoretic. Recommend that patient has BMP and magnesium level checked on Saturday. Over follow up with her PCP and nephrology in 1 week. Patient's symptoms have improved she is medically stable for discharge. Please refer to chart for any further details. Patient Condition at Discharge: Stable Plan - Discharge Summary Discharge Medication List Albuterol Nebulized [Ventolin Nebulized] 2.5 mg INHALATION RT-QID PRN 07/16/16 [ History] Ergocalciferol (Vitamin D2) [Vitamin D2] 50,000 unit PO Q7D 07/16/16 [History] Ferrous Sulfate [Feosol] 325 mg PO DAILY 07/16/16 [History] Fluticasone Nasal [place] [Flonase Nasal [place]] 2 spr EA NOSTRIL DAILY PRN [History] HYDROcodone/APAP 5-325MG [[employer] 5-325] 1 - 2 tab PO QID PRN 07/16/16 [History] Ipratropium-Albuterol Nebulize [Duoneb 0.5 mg-3 mg/3 ml Soln] 3 ml INHALATION RT -QID PRN 07/16/16 [History] Lisinopril-Hctz 10-12.5 mg [Zestoretic 10-12.5] 1 tab PO DAILY 07/16/16 [History ] Loratadine [Claritin] 10 mg PO DAILY 07/16/16 [History] Omeprazole [PriLOSEC] 20 mg PO DAILY 07/16/16 [History] Potassium Chloride [Klor-Con 10] 10 meq PO DAILY 07/16/16 [History] Pyridostigmine [place] [Mestinon] 60 mg PO QID 07/16/16 [History] Topiramate [Topamax] 100 mg PO HS 07/16/16 [History] Venlafaxine HCl ER [Effexor XR] 75 mg PO BID 07/16/16 [History] diphenhydrAMINE HCL [Benadryl] 25 mg PO DAILY PRN 07/16/16 [History] metFORMIN HCL ER [Glucophage Xr] 500 mg PO BID 07/16/16 [History] predniSONE 10 mg PO BID 07/16/16 [History] Follow up Appointment(s)/Referral(s): Britany Stokes DO [Primary Care Provider] - 1 Week Tiffanie Stone MD [STAFF PHYSICIAN] - 1 Week Activity/Diet/Wound Care/Special Instructions: Diet: Cardiac, diabetic Activity: as tolerated Check BMP, Mg on Saturday Discharge Disposition: HOME SELF-CARE
[2016-07-19] MEDS: MAGNESIUM SULFATE-D5W PMX 1 GM in DEXTROSE/WATER 1 100ML.BAG IVPB SCH ×2 (11:12→12:17)
[2016-07-19 12:32] LABS: Glucose,Whole Blood 114 mg/dL (75-99)
--- NOTE | 2016-07-19 18:34 | PN ---
Patient is seen for follow-up for acute kidney injury. Her renal function has resolved with serum creatinine now at 1.12 mg/dL. Patient had been maintained on IV fluids, which were decreased yesterday. On examination, blood pressure is 105/75, heart rate 84 per minute. She is afebrile. Examination of the heart S1 and S2. Examination of the lungs: Bilateral breath sounds are heard. ABDOMEN: Soft, nontender. Examination of lower extremities shows no significant edema. [employer] exam is grossly intact. Labs show sodium of 148, potassium 4.2, BUN 12, serum creatinine 1.12. Hemoglobin 9.6 g/dL. ASSESSMENT: 1. Acute kidney injury, acute tubular necrosis, currently significantly improved. 2. Hypovolemia, currently resolved. 3. Mild hypernatremia expect improvement as patient increases her oral intake and plain water as outpatient. 4. Hypomagnesemia status post replacement. PLAN: Patient can be discharged from nephrology standpoint. Avoid NSAIDs on a regular basis.
== END 2016-07-19 13:56 | disposition home or self-care (01) | DRG 683 ==
LOC: EC 19:35 → 4MS4W 21:57
PROVIDERS: ADMIT Internal Medicine; ATTEND Internal Medicine
DX: N17.0 Acute kidney failure with tubular necrosis (principal); E87.0 Hyperosmolality and hypernatremia; G70.00 Myasthenia gravis without (acute) exacerbation; I95.9 Hypotension, unspecified; E83.42 Hypomagnesemia; E83.52 Hypercalcemia; A08.4 Viral intestinal infection, unspecified; E11.9 Type 2 diabetes mellitus without complications; E86.0 Dehydration; E86.1 Hypovolemia; I10 Essential (primary) hypertension; J44.9 Chronic obstructive pulmonary disease, unspecified; E78.5 Hyperlipidemia, unspecified; E87.6 Hypokalemia; Z90.710 Acquired absence of both cervix and uterus; F32.9 Major depressive disorder, single episode, unspecified; Z90.49 Acquired absence of other specified parts of digestive tract; Z87.891 Personal history of nicotine dependence; Z79.84 Long term (current) use of oral hypoglycemic drugs; Z79.52 Long term (current) use of systemic steroids; Z79.899 Other long term (current) drug therapy
CPT/HCPCS: 36415; 74000; 80048; 80053; 80299; 81001; 82150; 83036; 83690; 83735; 84100; 84132; 85025; 87045; 87046; 87328; 87329; 89055; 93005; 94640; 96361; 96365; 96366; 96372; 96375; 99285

== ENCOUNTER → 2016-07-23 | Outpatient (CLI) | payer BC ==
[2016-07-23 10:36] LABS: Anion Gap 8 mmol/L; Blood Urea Nitrogen 12 mg/dL (7-17); Carbon Dioxide 22 mmol/L (22-30); Chloride 114 mmol/L (98-107); Glucose 78 mg/dL (74-99); Magnesium 1.6 mg/dL (1.6-2.3); Non-African American GFR(MDRD) 58 (>60 ml/min/1.73 sqM); Sodium 144 mmol/L (137-145)
== END ==
LOC: LABWHC1 09:49
PROVIDERS: ATTEND Internal Medicine
DX: N17.9 Acute kidney failure, unspecified (principal); E83.42 Hypomagnesemia
CPT/HCPCS: 36415; 80048; 83735

== ENCOUNTER → 2019-11-16 | Outpatient (CLI) | payer MEDICARE, BC ==
--- NOTE | 2019-11-16 09:46 | MR ---
EXAMINATION TYPE: MR lumbar spine wo con DATE OF EXAM: 11/16/2019 COMPARISON: NONE HISTORY: LBP, radiates to left side x 4 weeks, no trauma TECHNIQUE: Multiplanar, multisequence imaging of the lumbar spine is performed without IV contrast. FINDINGS: Sagittal images of the lumbar spine show vertebral body heights and alignment to appear sat isfactory. Multilevel disc desiccation is seen with mild multilevel disc space narrowing, relative sp aring of L5-S1 level noted. Mild multilevel anterior spurring greatest at L4 level. The conus medull radhika is normal in position and signal ending mid L1 level. The bone marrow signal intensity is withi n normal limits. Mild height loss involving the superior T12 vertebra greater to left of midline. Axial images show the T12-L1 and L1-L2 levels to appear within normal limits. Axial images at L2-L3 level show mild facet degenerative changes and ligamentum flavum hypertrophy bi laterally. Axial images at L3-L4 level show mild/moderate broad disc bulge with mild facet degenerative changes and ligamentum flavum hypertrophy. There is mild bilateral anterior inferior neural foraminal narrowi ng. Axial images at the L4-L5 level show moderate facet degenerative changes bilaterally with mild broad- based posterior disc protrusion. Spinal canal is preserved. There is mild bilateral inferior neural f oraminal narrowing. Axial images at the L5-S1 level show mild/moderate facet degenerative changes bilaterally. There is a broad disc bulge with spinal canal is preserved. Bilateral neural foramina are patent. No suspicious incidental retroperitoneal findings. IMPRESSION: Multilevel mild to moderate degenerative changes in the mid to lower lumbar spine as deta iled above, no significant focal disc herniation seen to account for patient's left-sided radiculopat hy type symptoms however.
== END | disposition home or self-care (01) ==
LOC: RADMRIMAIN 07:17
PROVIDERS: ATTEND Family Medicine
DX: M47.816 Spondylosis without myelopathy or radiculopathy, lumbar region (principal)
CPT/HCPCS: 72148

== ENCOUNTER → 2021-07-26 | Outpatient (CLI) | payer MEDICARE ==
--- NOTE | 2021-07-26 20:25 | CT ---
EXAMINATION TYPE: CT abdomen pelvis w con DATE OF EXAM: 07/26/2021 COMPARISON: No previous CT scan is available for comparison. HISTORY: RUQ pain CT DLP: 1330 mGycm Automated exposure control for dose reduction was used. TECHNIQUE: Helical acquisition of images was performed from the lung bases through the pelvis. CONTRAST: Performed with Oral Contrast and with IV Contrast, patient injected with 100 mL of Isovue 300. FINDINGS: LUNG BASES: Bilateral enlargement, for correlation with echocardiographic results. LIVER/GB: No significant abnormality is appreciated. PANCREAS: No significant abnormality is seen. SPLEEN: No significant abnormality is seen. ADRENALS: No significant abnormality is seen. KIDNEYS: No significant abnormality is seen. FREE AIR: No free air is visualized. RETROPERITONEAL ADENOPATHY: None visualized REPRODUCTIVE ORGANS: Previous hysterectomy. Left adnexal calcifications. No gross adnexal mass. URINARY BLADDER: Well-defined hyperdense/enhancing structure is seen at the base of the urinary blad karla, measuring 16 x 31 x 17 mm, incompletely characterized and could represent a urethral lesion wilson melvina vaginal cyst or urinary bladder base lesion cannot be excluded. Recommend correlation with urinal ysis results, cystoscopy and/or further MRI assessment. Unremarkable remainder of the urinary bladder . PELVIC ADENOPATHY: None visualized. OSSEOUS STRUCTURES: Indeterminate millimetric dense foci within the pubic bones bilaterally without bone destruction. Sternotomy wire sutures. Degenerative changes of the lower thoracic and lower lumba r spine as well as sacroiliac joints. No aggressive bone lesion. BOWEL: Moderate fecal loading of the colon. Fatty infiltration of the cecal wall. OTHER: Scattered arterial atherosclerotic calcifications. No ascites. IMPRESSION: 1. No significant right upper quadrant abnormality. 2. Indeterminate lesion at the urinary bladder base, incompletely characterized and could represent a urinary bladder base lesion, urethral lesion or vaginal cyst. Recommend further MRI assessment and c orrelation with urinalysis results. Further cystoscopy can be also considered. Other incidental findi ngs as described above.
== END | disposition home or self-care (01) ==
LOC: RADCTMAIN 13:40
PROVIDERS: ATTEND Family Medicine
DX: R10.2 Pelvic and perineal pain (principal); R10.11 Right upper quadrant pain
CPT/HCPCS: 82565; 84520; 74177; 36415; Q9967

== ENCOUNTER → 2021-08-16 | Outpatient (CLI) | payer MEDICARE ==
--- NOTE | 2021-08-19 05:20 | MR ---
EXAMINATION TYPE: MR pelvis wo/w con DATE OF EXAM: 08/16/2021 COMPARISON: HISTORY: Prior outside images requested. pain in stomach side and back , urethral mass CONTRAST: Standard multiplanar, multisequence MRI departmental protocol images were obtained without contrast a nd with 7ml mL intravenous Gadavist gadolinium contrast. The urinary bladder distends smoothly. There is a rounded 1.3 cm fluid signal mass at the base of the urinary bladder on the right side of the urethra that could be a urethral diverticulum or cyst. Ther e is no evidence of free fluid in the pelvis. The hip joints show mixed signal in the subchondral rig ht femoral head consistent with some chronic avascular necrosis. There is no ascites. There is no ing uinal hernia. No evidence of pelvic lymphadenopathy. There is no pathologic enhancement. IMPRESSION: There is nonenhancing rounded mass on the right side of the urethra at the sphincter at the base of t he urinary bladder with fluid signal and could be urethral diverticulum or urethral cyst.
== END | disposition home or self-care (01) ==
LOC: RADMRIMAIN 06:38
PROVIDERS: ATTEND Urology
DX: N36.8 Other specified disorders of urethra (principal)
CPT/HCPCS: 72197; A9585